=== PATIENT | female | born 1985 | race Caucasian/White ===

== ENCOUNTER 2017-02-25 07:36 | Day surgery (SDC) | payer OTHER ==
[2017-02-25 08:24] LABS: BASO # 0.1 K/uL (0.0-0.2); BASO % 1.7 % (0.0-2.0); EOS # 0.2 K/uL (0.0-0.7); EOS % 3.5 % (0.0-4.0); HEMATOCRIT 40.8 % (34.0-47.0); LYMPH # 2.1 K/uL (1.0-4.3); MEAN CELL VOLUME 93.6 fL (81.0-99.0); MEAN CORPUSCULAR HEMOGLOBIN 31.4 pg (27.0-31.0); MEAN CORPUSCULAR HGB CONC 33.6 g/dL (33.0-37.0); MEAN PLATELET VOLUME 9.1 fL (7.2-11.7); MONO # 0.5 K/uL (0.0-0.8); MONO % 7.9 % (0.0-10.0); RED CELL DISTRIBUTION WIDTH 13.1 % (11.5-14.5); WHITE BLOOD COUNT 6.4 K/uL (4.8-10.8)
[2017-02-25] MEDS ORDERED: Lactated Ringer's 1,000 ML IV ONE ×2 (08:25)
[2017-02-25] MEDS ORDERED: Propofol 10 mg/ml Inj (20 ML) ONE (08:26)
[2017-02-25] MEDS ORDERED: Midazolam 2 MG/2 ML VIAL ONE (08:26)
[2017-02-25] MEDS ORDERED: Silver Nitrate Topical - Stick ONE (08:54)
--- NOTE | 2017-02-25 09:05 | PCM.SURG1 ---
Surgeon's Initial Post Op Note - Surgeon's Notes Surgeon: zakiya Richey Electrical Appliance Mechanic: none Type of Anesthesia: General LMA Pre-Operative Diagnosis: missed Operative Findings: 8cm uterus, adequate tissue removed, hemostasis at the end Post-Operative Diagnosis: same Operation Performed: suction D&C Specimen/Specimens Removed: products of conception Estimated Blood Loss: EBL {In ML}: 10 Blood Products Given: N/A Drains Used: No Drains Date of Surgery/Procedure: 02/25/17 Time of Surgery/Procedure: 09:05
[2017-02-25] MEDS ORDERED: HYDROmorphone 0.5 mg/0.5 ml ISec IVP PRN (09:12)
[2017-02-25] MEDS ORDERED: Lactated Ringer's 1,000 ML IV PRN (09:12)
[2017-02-25] MEDS ORDERED: Lactated Ringer's 1,000 ML IV SCH (09:15)
[2017-02-25 11:09] VITALS: O2SAT 100
[2017-02-25 11:39] VITALS: BP 98/59; PULSE 77; RESP 18; TEMP 98
--- NOTE | 2017-03-01 06:28 | OP ---
PROCEDURE DATE: 02/25/2017 PREOPERATIVE DIAGNOSIS: Missed . POSTOPERATIVE DIAGNOSIS: Missed . SURGEON: Dr. Yesenia Richey. COMPENSATION AND BENEFITS ADMINISTRATOR: None. ANESTHESIA: General LMA. OPERATIVE FINDINGS: An 8 cm uterus, adequate tissue removed. Hemostasis at the end of the case with no evidence of perforation. OPERATION: Suction D and C. OPERATIVE INDICATION: The patient is a 31-year-old female with missed confirmed on official ultrasound showing an 8-week fetus with no heartbeat. The patient was consented for the above proce dure. Risks, benefits and alternatives were discussed and she agreed to proceed. OPERATIVE PROCEDURE: The patient was taken to the OR, prepped and draped in the usual sterile fashio n in dorsal lithotomy. The cervix was grasped with single tooth tenaculum and serially dilated with Carrasco dilators to allow the passage of a size 8 curved curette for suction. The suction tube was att ached and the contents of the uterus were removed. A gentle curettage was performed with a smooth ba njo curette to ensure all tissue was removed from all quadrants. There was no evidence of perforatio n at the end of the case. All sponge, lap, and needle counts were correct. The instruments were all removed from the vagina. The patient tolerated the procedure well. SPECIMEN: Products of conception with additional sent for chromosome analysis. ESTIMATED BLOOD LOSS: 10 mL. POSTOPERATIVE CONDITIONS: Stable to PACU. Yesenia Richey MD cc: [id number] TT: 03/01/2017 02:18:56 ms 03/01/2017 05:27:53
== END 2017-02-25 11:40 | disposition home or self-care (01) ==
LOC: C.SDS 07:36
PROVIDERS: ATTEND Obstetrics & Gynecology
DX: O02.1 Missed abortion (principal)
CPT/HCPCS: 36415; 59820; 85025; 86850; 86900; 88233; 88262; 88305; J2250; J2704; J3010; J7120